=== PATIENT | male | born 1990 | race Caucasian/White ===

== ENCOUNTER 2017-10-30 18:31 | Emergency (ER) | payer BC ==
--- NOTE | 2017-10-30 21:21 | UC ---
Respiratory Complaint HPI - HPI Summary HPI Summary: 26 y/o male presents to the urgent care c/o productive cough, nasal congestion , fever, since Monday10/28/2017. Pt reports states symptoms started with nasal congestion, then the cough started. Pt has taking Nyquill to alleviate symptoms. Pt states he has PMHX of HTN on diet control. Cough is productive with a yellowish phlegm. He states some co-workers are sick too. Pt denies SOB , dizziness, chest pain, MACIEL, abdominal pain, N/V/D. - History of Current Complaint Chief Complaint: UCGeneralIllness Stated Complaint: COUGH,CONGESTION Time Seen by Provider: 10/30/17 21:17 Hx Obtained From: Patient Onset/Duration: Gradual Onset, Lasting Days - 3 days, Still Present, Worse Since - today Timing: Intermittent Episodes Severity Initially: Mild Severity Currently: Moderate Pain Intensity: 5 - sore throat Pain Scale Used: 0-10 Numeric Character: Cough: Productive, Sputum Description: - yellowish Aggravating Factors: Recumbent Position Alleviating Factors: OTC Meds Associated Signs And Symptoms: Positive: Fever, Chills, URI, Nasal Congestion, Sinus Discomfort - Risk Factors Pulmonary Embolism Risk Factors: Negative Cardiac Risk Factors: Negative Pseudomonas Risk Factors: Negative Tuberculosis Risk Factors: Negative - Allergies/Home Medications Allergies/Adverse Reactions: Allergies Allergy/AdvReac Type Severity Reaction Status Date / Time No Known Allergies Allergy Verified 10/30/17 20:59 PMH/Surg Hx/FS Hx/Imm Hx Previously Healthy: Yes Cardiovascular History: Hypertension - diet control - Surgical History Surgical History: Yes Surgery Procedure, Year, and Place: CYST REMOVED - Family History Known Family History: Positive: Hypertension - Social History Occupation: Employed Full-time Lives: With Family Alcohol Use: Occasionally Substance Use Type: None Smoking Status (MU): Never Smoked Tobacco - Immunization History Most Recent Influenza Vaccination: no Review of Systems Constitutional: Fever, Chills Skin: Negative Eyes: Negative ENT: Sore Throat, Nasal Discharge, Sinus Congestion Respiratory: Cough - productive Cardiovascular: Negative Gastrointestinal: Negative Genitourinary: Negative Motor: Negative Neurovascular: Negative Musculoskeletal: Negative Neurological: Headache Is Patient Immunocompromised?: No All Other Systems Reviewed And Are Negative: Yes Physical Exam Triage Information Reviewed: Yes Vital Signs: Initial Vital Signs Temp 97.4 F 10/30/17 20:57 Pulse 118 10/30/17 20:57 Resp 16 10/30/17 20:57 BP 177/110 10/30/17 20:57 Pulse Ox 99 10/30/17 20:57 - Additional Comments Vital Signs Reviewed: Yes General: well developed, well nourished male sitting in the examining table w/o any apparent distress Eyes: Positive: Conjunctiva Clear - PERRLA, EOMI, fundi grossly normal ENT: Positive: Normal ENT inspection, Hearing grossly normal, Pharynx normal, Nasal congestion - edematous and erythematous nasal mucosa, Nasal drainage - yellowish drainage, TMs normal. Negative: Tonsillar swelling, Tonsillar exudate Neck: Positive: Supple, Nontender, No Lymphadenopathy Respiratory: no orthopnea or dyspnea. Able to speak in full sentences, no retractions or accessory muscle use, no tripod position, stridor, or head bobbing. Positive breath sounds, mild posterior upper lung with mild rhonchi, no lung wheezes, crackles, or rales. Cardiovascular: Positive: RRR, No Murmur, Pulses Normal, Brisk Capillary Refill Abdomen Description: Positive: Nontender, No Organomegaly, Soft. Negative: CVA Tenderness (R), CVA Tenderness (L) Bowel Sounds: Positive: Present Musculoskeletal Exam: Normal Musculoskeletal: Positive: Strength Intact, ROM Intact, No Edema Neurological Exam: Normal Psychological Exam: Normal Skin Exam: Normal UC Diagnostic Evaluation - Laboratory O2 Sat by Pulse Oximetry: 99 Respiratory Course/Dx - Course Course Of Treatment: 26 y/o male presents to the urgent care c/o productive cough, nasal congestion, fever, since Monday10/28/2017. Pt reports states symptoms started with nasal congestion, then the cough started. Pt has taking Nyquill to alleviate symptoms. Pt states he has PMHX of HTN on diet control. Cough is productive with a yellowish phlegm. He states some co-workers are sick too. Pt denies SOB , dizziness, chest pain, MACIEL, abdominal pain, N/V/D. Hx obtained. Pt with mild rhonchi at left posterior upper lung on examination. Pt with Acute bronchitis on examination. Rapid strep ordered: result: negative, Influenza A&B ordered, result: negative. Pt Rx Z-neto PO and tessalon tabs PO for bronchitis. First dose of Z-neto given at the clinic since pharmacy is close now. Pt's BP is elevated today advised to decrease salt in diet, monitor BP and f/u with PCP for further management. He was educated on HTN and advised if he develops chest pain , SOB, dizziness to go immediately to the ER for further management. if not improvement or worsening of symptoms to f/u with PCP for further management. Pt understood and agreed with plan of care - Differential Dx/Diagnosis Differential Diagnosis/HQI/PQRI: Asthma, Bronchitis, Influenza, Laryngitis, Lower Resp Infection, Sinusitis, Other - pharyngitis, pneumonia Provider Diagnoses: 1- Acute Bronchitis. 1- Uncontrolled HTN Discharge - Discharge Plan Condition: Stable Disposition: HOME Prescriptions: Azithromycin TAB* [Zithromax TAB (Z-NETO) 250 mg #6 tabs] 250 mg PO DAILY #4 tab Benzonatate CAP* [Tessalon 100 MG CAP*] 100 mg PO TID PRN #21 cap PRN Reason: Cough Patient Education Materials: Acute Bronchitis (ED), Low-Sodium Diet (ED) Forms: *Work Release Referrals: [facility] [Outside] - 3 Days Additional Instructions: 1-Please take full course of antibiotic to avoid resistance. 2-Take Tessalon PO tabs as directed to alleviate cough. Increase fluid intake , rest and eat well. 3- If symptoms do not improve or worsen or your develop SOB with fever and severe wheezing please go immediately to the ER further evaluation and treatment. 4- F/u with your PCP in 2-3 days for further management. 5- Your BP is elevated today. please decrease salt in your diet, monitor BP and if it continues to be elevated please f/u with your PCP for further management
[2017-10-30] MEDS ORDERED: Azithromycin TAB* 250 MG PO ONE (21:51)
[2017-10-30 22:05] VITALS: BP 175/111
== END 2017-10-30 22:09 | disposition home or self-care (01) ==
LOC: UCCORT 18:31
DX: J20.9 Acute bronchitis, unspecified (principal); R50.9 Fever, unspecified; R05 Cough; J02.9 Acute pharyngitis, unspecified; I10 Essential (primary) hypertension
CPT/HCPCS: 87502; 87651; 99212; A9270-GY; G0463

== ENCOUNTER 2018-04-03 18:16 | Emergency (ER) | payer BC ==
[2018-04-03 18:43] VITALS: BP 161/101
--- NOTE | 2018-04-03 19:44 | UC ---
Respiratory Complaint HPI - HPI Summary HPI Summary: 27 yo male with one week hx of sinus pressure and pain nasal congestion no fever/chills now with right otalgia and decreased hearing - History of Current Complaint Chief Complaint: UCGeneralIllness Stated Complaint: SINUS Time Seen by Provider: 04/03/18 19:02 Hx Obtained From: Patient Onset/Duration: Gradual Onset Timing: Constant Severity Initially: Mild Severity Currently: Mild Pain Intensity: 3 Pain Scale Used: 0-10 Numeric Character: Cough: Nonproductive Aggravating Factors: Allergens Alleviating Factors: Nothing Associated Signs And Symptoms: Positive: URI, Nasal Congestion - Allergies/Home Medications Allergies/Adverse Reactions: Allergies Allergy/AdvReac Type Severity Reaction Status Date / Time No Known Allergies Allergy Verified 10/30/17 20:59 Home Medications: Home Medications Dm/Acetaminophen/Doxylamine [Night Cold-Flu Relief Liq Gel] 1 each PO DAILY [History Confirmed 04/03/18] PMH/Surg Hx/FS Hx/Imm Hx Previously Healthy: Yes Cardiovascular History: Hypertension - not on meds currently - Surgical History Surgical History: Yes Surgery Procedure, Year, and Place: CYST REMOVED - Family History Known Family History: Positive: Hypertension - Social History Alcohol Use: Occasionally Substance Use Type: None Smoking Status (MU): Never Smoked Tobacco - Immunization History Most Recent Influenza Vaccination: no Review of Systems Constitutional: Negative Skin: Negative Eyes: Negative ENT: Ear Ache, Nasal Discharge, Sinus Congestion, Sinus Pain/Tenderness Respiratory: Cough Cardiovascular: Negative Gastrointestinal: Negative Genitourinary: Negative Motor: Negative Neurovascular: Negative Musculoskeletal: Negative Neurological: Negative Psychological: Negative Is Patient Immunocompromised?: No All Other Systems Reviewed And Are Negative: Yes Physical Exam Triage Information Reviewed: Yes Appearance: Well-Appearing, No Pain Distress, Well-Nourished Vital Signs: Initial Vital Signs Temp 98.2 F 04/03/18 18:39 Pulse 98 04/03/18 18:39 Resp 15 04/03/18 18:39 BP 161/101 04/03/18 18:39 Pulse Ox 98 04/03/18 18:39 Vital Signs Reviewed: Yes Eyes: Positive: Conjunctiva Clear ENT: Positive: Nasal congestion, Nasal drainage, TM bulging - R, TM red - R, Sinus tenderness. Negative: Hearing grossly normal, TMs normal Neck: Positive: Supple, Nontender, No Lymphadenopathy Respiratory: Positive: Lungs clear, Normal breath sounds, No respiratory distress Cardiovascular: Positive: RRR, No Murmur Musculoskeletal: Positive: ROM Intact, No Edema Neurological: Positive: Alert Psychological Exam: Normal Skin Exam: Normal UC Diagnostic Evaluation - Laboratory O2 Sat by Pulse Oximetry: 98 Respiratory Course/Dx - Differential Dx/Diagnosis Provider Diagnoses: acute sinusitis. right otitis media Discharge - Sign-Out/Discharge Documenting (check all that apply): Discharge/Admit/Transfer - Discharge Plan Condition: Stable Disposition: HOME Prescriptions: Amoxicillin PO (*) [Amoxicillin 875 MG (*)] 875 mg PO BID #20 tab Fluticasone NASAL SPRAY 50MCG* [Flonase NASAL SPRAY 50MCG*] 2 spray BOTH NARES BID #1 btl Patient Education Materials: Sinusitis (ED), Ear Infection (ED) Referrals: No Primary Care Phys,NOPCP [Primary Care Provider] - Additional Instructions: recheck in 2 weeks if not better - Billing Disposition and Condition Condition: STABLE Disposition: Home
== END 2018-04-03 19:12 | disposition home or self-care (01) ==
LOC: UCCORT 18:16
DX: J01.90 Acute sinusitis, unspecified (principal); H66.91 Otitis media, unspecified, right ear
CPT/HCPCS: 99212; G0463

== ENCOUNTER 2018-12-04 07:28 | Emergency (ER) | payer BC ==
[2018-12-04 07:35] VITALS: BP 168/103
--- NOTE | 2018-12-04 07:43 | UC ---
Throat Pain/Nasal Irvin HPI - HPI Summary HPI Summary: sore throat x 1 day mild nasal congestion, mild cough +fever, chills, body aches no n/v/d/c , no abdominal pain - History of Current Complaint Chief Complaint: UCGeneralIllness Stated Complaint: SORE THROAT,CONGESTION,EARS Time Seen by Provider: 12/04/18 07:34 Hx Obtained From: Patient Onset/Duration: Gradual Onset, Lasting Days - 1, Still Present Severity: Moderate Pain Intensity: 5 Cough: Nonproductive Associated Signs & Symptoms: Positive: Fever. Negative: Dysphagia, FB Sensation , Drooling, Wheezing, Hoarseness, Sinus Discomfort, Nasal Discharge, Vomiting, Rash - Allergies/Home Medications Allergies/Adverse Reactions: Allergies Allergy/AdvReac Type Severity Reaction Status Date / Time No Known Allergies Allergy Verified 12/04/18 07:33 PMH/Surg Hx/FS Hx/Imm Hx Previously Healthy: Yes - Surgical History Surgical History: Yes Surgery Procedure, Year, and Place: CYST REMOVED - Family History Known Family History: Positive: Hypertension - Social History Alcohol Use: Rare Substance Use Type: None Smoking Status (MU): Never Smoked Tobacco - Immunization History Most Recent Influenza Vaccination: no Review of Systems All Other Systems Reviewed And Are Negative: Yes Constitutional: Positive: Fever, Chills, Fatigue Skin: Positive: Negative Eyes: Positive: Negative ENT: Positive: Sore Throat Respiratory: Positive: Cough Cardiovascular: Positive: Negative Gastrointestinal: Positive: Negative Is Patient Immunocompromised?: No Physical Exam Triage Information Reviewed: Yes Appearance: Well-Appearing, Well-Nourished, Pain Distress Vital Signs: Initial Vital Signs Temp 96.7 F 12/04/18 07:33 Pulse 125 12/04/18 07:33 Resp 20 12/04/18 07:33 BP 168/103 12/04/18 07:33 Pulse Ox 97 12/04/18 07:33 Vital Signs Reviewed: Yes Eyes: Positive: Conjunctiva Clear ENT: Positive: Normal ENT inspection, Hearing grossly normal, Pharyngeal erythema, Tonsillar swelling, Tonsillar exudate. Negative: Trismus Neck: Positive: Supple, Nontender, No Lymphadenopathy Respiratory: Positive: Chest non-tender, Lungs clear, Normal breath sounds Cardiovascular: Positive: Tachycardia Abdominal Exam: Normal Abdomen Description: Positive: Nontender Skin Exam: Normal Throat Pain/Nasal Course/Dx - Differential Dx/Diagnosis Provider Diagnosis: Pharyngitis, Elevated BP without diagnosis of hypertension Discharge - Sign-Out/Discharge Documenting (check all that apply): Patient Departure All imaging exams completed and their final reports reviewed: No Studies - Discharge Plan Condition: Stable Disposition: HOME Prescriptions: Amoxicillin PO (*) [Amoxicillin 875 MG (*)] 875 mg PO BID #20 tab Patient Education Materials: Strep Throat (DC), Hypertension (ED) Referrals: No Primary Care Phys,NOPCP [Primary Care Provider] - If Needed Additional Instructions: please monitor your bp daily follow up with your pcp in one week - Billing Disposition and Condition Condition: STABLE Disposition: Home
== END 2018-12-04 07:44 | disposition home or self-care (01) ==
LOC: UCCORT 07:28
DX: J02.9 Acute pharyngitis, unspecified (principal); R03.0 Elevated blood-pressure reading, without diagnosis of hypertension; R09.81 Nasal congestion
CPT/HCPCS: 99212; G0463